=== PATIENT | male | born 1985 | race African-American/Black ===

== ENCOUNTER 2019-03-10 22:48 | Inpatient (IN) | payer SELFPAY ==
[~2019-03-10] VITALS: Ht 188 cm; Wt 115.8 kg
[2019-03-10] MEDS ORDERED: LORAZEPAM 2MG/ML CPJ IV STA (23:40)
[2019-03-10] MEDS ORDERED: SODIUM CHLORIDE 0.9% 1,000 ML IV ONE ×4 (23:40)
[2019-03-10] MEDS ORDERED: ONDANSETRON HCL 4MG/2ML INJ IV STA (23:40)
[2019-03-11] VITALS (37 sets, daily range): BP systolic 113–147; BP diastolic 59–96
[2019-03-11] MEDS ORDERED: MORPHINE SULFATE 4 MG/ML CPJ (NOT FOR IM USE) IV ONE
[2019-03-11 00:10] LABS: BG BASE EXCESS -21.6 mmol/L (-2.0-2.0); BG CARBOXYHEMOGLOBIN 0.6 % (0.5-1.5); BG DEOXYHEMOGLOBIN 2.3 % (0.0-5.0); BG FRACTION INSPIRED OXYGEN 21; BG METHEMOGLOBIN 0.6 % (0.0-1.5); BG OXYGEN SATURATION 97.7 % (92.0-98.5); BG OXYHEMOGLOBIN 96.5 % (94.0-97.0); BG PCO2 19.7 mmHg (35.0-45.0); BG PH 7.099 (7.350-7.450); BG PO2 123.4 mmHg (75.0-100.0); BG SAMPLE SITE LEFT RADIAL; BG VENT MODE ROOM AIR
[2019-03-11] MEDS ORDERED: INSULIN REGULAR (DRIP) 100 UNITS in SODIUM CHLORIDE 0.9% 99 ML IV SCH (00:15)
[2019-03-11 00:40] LABS: HEMATOCRIT. 57.3 % (42.0-52.0); HEMOGLOBIN. 17.5 g/dL (14.0-18.0); MEAN CORPUSCULAR VOLUME 91.9 fL (80.0-94.0); MEAN PLATELET VOLUME 10.6 fl (7.4-10.4); PLATELET 234 x1000/uL (130-400); RED BLOOD CELL COUNT 6.23 mill/uL (4.7-6.1); RED CELL DISTRIBUTION WIDTH 14.3 % (11.6-14.6)
[2019-03-11 00:55] LABS: CHLORIDE 83 mEq/L (98-107)
[2019-03-11 00:59] LABS: CLARITY URINE CLEAR (CLEAR); COLOR URINE YELLOW (YELLOW); KETONES URINE 4+ (NEGATIVE); LEUKOCYTE ESTERASE URINE NEGATIVE (NEGATIVE); NITRITE URINE NEGATIVE (NEGATIVE); OCCULT BLOOD URINE 1+ (NEGATIVE); PROTEIN URINE 2+ (NEGATIVE); SPECIFIC GRAVITY URINE 1.023 (1.005-1.030); UROBILINOGEN URINE 0.2 E.U./dL (0.2-1.0)
[2019-03-11 01:00] LABS: ETHANOL BLOOD < 10 mg/dL
[2019-03-11 01:14] LABS: *AMPHETAMINES SCREEN URINE NEGATIVE (NEGATIVE); *BARBITURATES SCREEN URINE NEGATIVE (NEGATIVE); *BENZODIAZEPINES SCREEN URINE NEGATIVE (NEGATIVE)
[2019-03-11 01:15] LABS: *COCAINE SCREEN URINE NEGATIVE (NEGATIVE); CANNABINOID URINE SCREEN NEGATIVE (NEGATIVE); METHADONE URINE SCREEN NEGATIVE (NEGATIVE); OPIATES URINE SCREEN NEGATIVE (NEGATIVE); PHENCYCLIDINE URINE SCREEN NEGATIVE (NEGATIVE)
[2019-03-11] MEDS ORDERED: SODIUM CHLORIDE 0.9% 1,000 ML IV STA (01:34)
[2019-03-11 01:38] LABS: BETA HYDROXYBUTYRATE 12.3 mMol/L (0.0-0.3)
[2019-03-11 02:02] LABS: ATYPICAL LYMPHOCYTES 1
[2019-03-11 02:03] LABS: PLATELET ESTIMATE NORMAL
[2019-03-11 02:27] LABS: CHLORIDE 95 mEq/L (98-107)
[2019-03-11 02:33] LABS: PHOSPHORUS 6.4 mg/dL (2.5-4.9)
[2019-03-11] MEDS ORDERED: DIPHENHYDRAMINE 50MG/ML VIAL IV PRN (02:45)
[2019-03-11] MEDS ORDERED: ACETAMINOPHEN 325MG TABLET PO PRN (02:45)
[2019-03-11] MEDS ORDERED: CLONIDINE 0.1MG TABLET PO PRN (02:45)
[2019-03-11] MEDS ORDERED: ONDANSETRON HCL 4MG/2ML INJ IV PRN (02:45)
[2019-03-11] MEDS ORDERED: INSULIN REGULAR (DRIP) 100 UNITS in SODIUM CHLORIDE 0.9% 100 ML IV ONE (02:45)
[2019-03-11] MEDS ORDERED: LORAZEPAM 2MG/ML CPJ IV PRN (02:45)
[2019-03-11] MEDS ORDERED: HYDROMORPHONE HCL/PF 2MG/ML CPJ IV PRN (02:45)
[2019-03-11 04:17] LABS: CHLORIDE 104 mEq/L (98-107)
[2019-03-11 04:23] LABS: PHOSPHORUS 2.9 mg/dL (2.5-4.9)
[2019-03-11] MEDS ORDERED: INSLIS SUBCUT (04:30)
[2019-03-11] MEDS ORDERED: DEXTROSE 50% WATER 50ML SYRINGE IV PRN ×3 (05:00→14:00)
[2019-03-11] MEDS ORDERED: INSULIN REGULAR (DRIP) 100 UNITS in SODIUM CHLORIDE 0.9% 100 ML IV SCH (06:00)
[2019-03-11] MEDS: BLOOD SUGAR DIAGNOSTIC STRIP TEST SCH ×10 (06:24→21:11)
[2019-03-11 06:48] LABS: BASOPHILS % 0.7 % (0.0-2.0); HEMATOCRIT. 48.3 % (42.0-52.0); HEMOGLOBIN. 15.8 g/dL (14.0-18.0); MEAN CORPUSCULAR HEMOGLOBIN 28.2 pg (28.0-32.0); MEAN CORPUSCULAR VOLUME 86.1 fL (80.0-94.0); MEAN PLATELET VOLUME 9.3 fl (7.4-10.4); MONOCYTES % 7.8 % (2.0-8.0); NEUTROPHILS % 82.5 % (40.0-76.0); PLATELET 199 x1000/uL (130-400); RED BLOOD CELL COUNT 5.61 mill/uL (4.7-6.1); RED CELL DISTRIBUTION WIDTH 13.4 % (11.6-14.6)
[2019-03-11] MEDS: SODIUM CHLORIDE 0.9% 1,000 ML IV SCH ×2 (06:50→09:29)
[2019-03-11 06:54] LABS: CHLORIDE 107 mEq/L (98-107)
[2019-03-11 06:59] LABS: PHOSPHORUS 1.8 mg/dL (2.5-4.9)
[2019-03-11] MEDS ORDERED: SODIUM PHOS,M-BASIC-D-BASIC 20 MM in DEXT 5% WATER 243.3333 ML IV SCH (09:00)
[2019-03-11] MEDS: FAMOTIDINE 20MG/2ML VIAL IV SCH ×2 (09:17→21:10)
[2019-03-11] MEDS ORDERED: DEXT 5%/0.45% NACL 1000ML 1,000 ML IV SCH (11:15)
[2019-03-11 13:40] LABS: CHLORIDE 109 mEq/L (98-107)
[2019-03-11 13:46] LABS: PHOSPHORUS 1.8 mg/dL (2.5-4.9)
[2019-03-11] MEDS ORDERED: INSULIN GLARGINE UD 100 UNITS/ML SYR SUBCUT NR (15:00)
[2019-03-11] MEDS: INSULIN LISPRO 100 UNITS/ML SUBCUT SCH ×2 (17:27→21:11)
[2019-03-11] MEDS ORDERED: KETOROLAC 15MG/ML VIAL IV PRN (19:30)
[2019-03-12] VITALS: BP 119/63
== END 2019-03-12 04:12 | disposition left against medical advice (07) | DRG 420 ==
LOC: ER 22:48 → EDBEDREQSVC 03-11 00:18 → EDBEDREQ 03-11 00:18 → EDBEDREQTM 03-11 00:18 → CVICU 03-11 01:33 → EDBEDREQTM 03-11 01:35 → EDBEDREQ 03-11 01:35 → ENRESERV 03-11 03:14 → 6EST 03-11 22:20
PROVIDERS: ADMIT Internal Medicine; ATTEND Internal Medicine
DX: E11.10 Type 2 diabetes mellitus with ketoacidosis without coma (principal); N17.9 Acute kidney failure, unspecified; E87.8 Other disorders of electrolyte and fluid balance, not elsewhere classified; F17.200 Nicotine dependence, unspecified, uncomplicated; Z60.2 Problems related to living alone; Z79.4 Long term (current) use of insulin; Z91.14 Patient's other noncompliance with medication regimen; Z71.6 Tobacco abuse counseling
CPT/HCPCS: 36415; 36600; 71045; 74176; 80048; 80305; 80320; 82010; 82375; 82805; 82962; 83605; 83735; 84100; 93005; 96361; 96374; 96375; 99291; 99406; J1815; J1885; J2060; J2270; J2405; J3490; J7030; J7050; J7060; G0480